=== PATIENT | male | born 1965 | race African-American/Black ===

== ENCOUNTER 2021-09-19 04:23 | Day surgery (SDC) | payer BC, OTHER ==
[2021-09-17 11:26] VITALS: BMI 30.4
[2021-09-19] MEDS ORDERED: BUPIVACAINE HCL/PF 0.5% (5MG/ML) 10 ML VIAL ONE (07:16)
[2021-09-19] MEDS ORDERED: BUPIVACAINE LIPOSOME/PF (EXPAREL) 266 MG/20 ML VIAL ONE (07:16)
[2021-09-19] MEDS ORDERED: MIDAZOLAM HCL 2 MG/2 ML SINGLE DOSE VIAL ONE ×3 (07:28→07:55)
[2021-09-19] MEDS ORDERED: PROPOFOL 20 ML ONE ×2 (07:28→08:39)
[2021-09-19] MEDS ORDERED: ROCURONIUM BROMIDE 50 MG/5 ML SYRINGE ONE (08:05)
[2021-09-19] MEDS ORDERED: ceFAZolin SODIUM 1 GM VIAL IVPB ONE (08:45)
[2021-09-19] MEDS ORDERED: ONDANSETRON 4 MG/2 ML VIAL IVPUSH PRN (09:37)
[2021-09-19] MEDS ORDERED: oxyCODONE HCL 5 MG TABLET PO PRN ×2 (09:37)
[2021-09-19] MEDS ORDERED: LACTATED RINGERS SOLUTION 1,000 ML IV SCH (09:45)
[2021-09-19 14:21] VITALS: BP 113/64; PULSE 60; TEMP 97.6
== END 2021-09-19 14:00 | disposition home or self-care (01) ==
LOC: JASU-SURG 04:23
PROVIDERS: ATTEND Surgery
PROC: 8E0W4CZ Robotic Assisted Procedure of Trunk Region, Percutaneous Endoscopic Approach (ICD-10-PCS; 2021-09-19)
PROC: 0WUF4JZ Supplement Abdominal Wall with Synthetic Substitute, Percutaneous Endoscopic Approach (ICD-10-PCS; principal; 2021-09-19 08:00)
DX: K42.9 Umbilical hernia without obstruction or gangrene (principal)
CPT/HCPCS: 17999; 49652; S2900; 94760